=== PATIENT | female | born 1995 | race Caucasian/White ===

== ENCOUNTER 2019-12-04 16:31 | Emergency (ER) | payer OTHER, MEDICARE, MEDICAID, SELFPAY ==
--- NOTE | 2019-12-04 16:38 | ED.ANIMALBIT ---
HPI - Animal Bite General Chief Complaint: Animal Bite Stated Complaint: dog bite Time Seen by Provider: 12/04/19 16:38 Source: patient and RN notes reviewed History of Present Illness HPI narrative: Patient is a 24-year-old female who presents the urgent care with her mother who is her caregiver due to severe autism. Mother states that her caregivers dog bit the patient in the face yesterday. Caregiver states that the dog is up-to-date on all the vaccinations including the rabies. Mother states that patient does need to be up-to-date with her tetanus shot. States that she called her daughter's physician and has an appointment tomorrow at 3 PM but was not prescribed any antibiotics. States that the area has increased in redness and swelling since last night when the incident occurred. Mother denies of any use of [id number] medications. Denies of any known fever, vomiting, complaints of pain. Patient is cooperative without any acute distress noted. Mother is aware of the plan of care. Some parts of this dictation were generated by voice recognition software and may contain typographical and/or grammatical inaccuracies. Related Data Home Medications Medication Instructions Recorded Confirmed citalopram 20 mg tablet 20 mg PO DAILY 12/28/18 12/04/19 diazepam 12.5 mg-15 mg-17.5 mg-20 5 mg RECTAL ONCE PRN each 12/28/18 12/04/19 mg rectal kit divalproex 125 mg capsule,delayed See Rx Instructions PO BID cap 12/28/18 12/04/19 release sprinkle lorazepam 0.5 mg tablet 0.5 mg PO DAILY PRN 12/28/18 12/04/19 naltrexone 50 mg tablet 50 mg PO .QHS tablet 12/28/18 12/04/19 paliperidone palmitate 156 mg/mL 156 mg IM MONTHLY 12/28/18 12/04/19 intramuscular syringe pyridoxal-5 phosphate 20 mg 100 mg PO DAILY tablet 12/28/18 12/04/19 tablet,delayed release trazodone 100 mg PO HS 12/04/19 12/04/19 Allergies Allergy/AdvReac Type Severity Reaction Status Date / Time No Known Allergies Allergy Verified 01/16/16 18:36 Review of Systems Review of Systems: Narrative: CONSTITUTIONAL: Denies fever, chills, or sweats. EYES: Denies visual changes, redness, or discharge. ENT: Denies rhinorrhea, congestion, sore throat, or otalgia. CARDIOVASCULAR: Denies chest pain, palpitations, or edema. RESPIRATORY: Denies cough or dyspnea. GASTROINTESTINAL: Denies abdominal pain, nausea, vomiting, or diarrhea. GENITOURINARY: Denies dysuria or hematuria. SKIN: Reports of a dog bite to the left face with redness and swelling MUSCULOSKELETAL: Denies back pain, joint pain, or myalgia. NEUROLOGIC: Denies headache, numbness, or weakness. All other systems reviewed are negative, except as documented in HPI. [facility] Past Medical History Medical History (Updated 12/04/19 @ 17:03 by ALICE Rubalcava) Anxiety Autism spectrum disorder, requiring support, associated with another neurodevelopmental, mental, or behavioral disorder Fracture of humerus, left, closed 01/2016 Seizures Vitamin D deficiency Family History Family History (Updated 02/09/18 @ 18:09 by DOCTOR UNKNOWN) Father Family history of cardiomyopathy, Onset Age: 38 Social History Social History Smoking status: Never smoker Alcohol intake: never Comments At the time of my signature, I reviewed and agree with the nursing past medical, surgical, social, and family history. There is no relevant family history pertinent to the patient complaint. Exam Narrative: Exam Narrative: GENERAL: This is a well-nourished, well-developed patient, in no apparent distress. HEAD: normocephalic, atraumatic. EYES: PERRL. Sclera clear/white. Vision is grossly intact. EARS: External ears normal NOSE: External nose normal with no obvious nasal discharge, nares without redness, no rhinorrhea. THROAT: Mucous membranes moist, posterior pharynx clear. NECK: Neck supple SKIN: 1.25 cm linear laceration noted to the left jawline with notable dried blood, 0.25 puncture wound noted under the
[2019-12-04 16:46] VITALS: PULSE 124; RESP 16; TEMP 36.4; O2SAT 100
[2019-12-04] MEDS: TETANUS,DIPHTHERIA,AC PERTUSSIS ADULT (0.5 ML) BOOSTRIX IM (17:12)
== END 2019-12-04 17:40 | disposition home or self-care (01) ==
PROVIDERS: Emergency Provider Nurse Practitioner Family; PCP Family Medicine
DX: S01.81XA Laceration without foreign body of other part of head, initial encounter (principal); W54.0XXA Bitten by dog, initial encounter; S01.83XA Puncture wound without foreign body of other part of head, initial encounter; Z23 Encounter for immunization; F41.9 Anxiety disorder, unspecified; F84.0 Autistic disorder
CPT/HCPCS: 90471; 90715; 99213; G0463

== ENCOUNTER 2023-12-23 09:05 | Outpatient (NON) | payer MEDICARE, MEDICAID, SELFPAY ==
[2023-12-23 09:20] LABS: Basophils Percent Auto 0.5 % (0.2-1.2); Eosinophils Percent Auto 0.6 % (0-4.4); Hematocrit 37.3 % (37.0-47.0); Immature Granulocyte Absolute 0.02 K/mm3 (0.00-0.031); Immature Granulocyte Percent A 0.3 % (0-0.5); Lymphocytes Absolute Auto 3.17 K/mm3 (0.9-3.2); Lymphocytes Percent Auto 49.1 % (18.3-44.2); Mean Corpuscular HGB Conc 34.9 g/dl (32-36); Mean Corpuscular Hemoglobin 33.9 pg (26-34); Mean Corpuscular Volume 97.1 fl (80-100); Mean Platelet Volume 10.9 fl (7.4-10.4); Monocytes Absolute Auto 0.5 K/mm3 (0.1-0.6); Monocytes Percent Auto 7.7 % (2.6-8.5); Neutrophils Absolute Auto 2.7 K/mm3 (1.3-6.7); Neutrophils Percent Auto 41.8 % (45.5-73.1); Platelet Count Result 267 k/mm3 (150-375); Red Blood Count 3.84 M/mm3 (4.2-5.4); White Blood Count 6.5 K/mm3 (4.5-10.0)
[2023-12-23 09:39] LABS: Alanine Aminotransferase 31 U/L (6-35); Albumin Level 3.5 g/dL (3.5-5.1); Alkaline Phosphatase 67 U/L (38-126); Anion Gap 9 mmol/L (4-12); Aspartate Amino Transferase 35 U/L (14-36); Bilirubin,Total 0.3 mg/dL (0.2-1.3); Blood Urea Nitrogen 10 mg/dL (7-17); Calcium 8.8 mg/dL (8.4-10.2); Carbon Dioxide 22 mmol/L (22-30); Chloride 102 mmol/L (98-107); Cholesterol 126 mg/dL (0-200); Estimated Glomerular Filt Rate > 60; Glucose 97 mg/dL (65-110); HDL Direct 39 mg/dL; Potassium 3.8 mmol/L (3.4-5.0); Sodium 133 mmol/L (137-145); Triglycerides 200 mg/dL (<150)
[2023-12-23 09:50] LABS: LDL Cholesterol Direct 62 mg/dL
[2023-12-23 11:26] LABS: Hemoglobin A1C 6.1 % (<5.7)
[2023-12-23 14:18] LABS: Valproic Acid 75.5 ug/mL (50-120)
[2023-12-23 14:30] LABS: Vitamin D 25 Hydroxy 58.1 ng/mL
== END 2023-12-23 09:06 | disposition home or self-care (01) ==
PROVIDERS: PCP Family Medicine; Visit Provider Family Medicine
DX: R56.9 Unspecified convulsions (principal); Z79.899 Other long term (current) drug therapy; Z13.220 Encounter for screening for lipoid disorders; E55.9 Vitamin D deficiency, unspecified; Z00.00 Encounter for general adult medical examination without abnormal findings; R73.9 Hyperglycemia, unspecified; F41.9 Anxiety disorder, unspecified; F84.0 Autistic disorder; Z13.29 Encounter for screening for other suspected endocrine disorder; E53.8 Deficiency of other specified B group vitamins
CPT/HCPCS: 36415; 80053; 80061; 80164; 82306; 82607; 83036; 84443; 85025

== ENCOUNTER 2024-12-25 08:26 | Outpatient (NON) | payer MEDICARE, MEDICAID, SELFPAY ==
[2024-12-25 13:04] LABS: Hematocrit 42.2 % (37.0-47.0); Hemoglobin 13.4 g/dL (12.0-15.0); Immature Granulocyte Percent A 0.3 % (0-0.5); Lymphocytes Absolute Auto 4.52 K/mm3 (0.9-3.2); Mean Corpuscular HGB Conc 31.8 g/dl (32-36); Mean Corpuscular Hemoglobin 31.2 pg (26-34); Mean Corpuscular Volume 98.1 fl (80-100); Nucleated Red Blood Cells Absolute Auto 0.000 K/mm3 (0.0-0.012); Nucleated Red Blood Cells Perc 0.0 % (0.0-0.2); Platelet Count Result 248 k/mm3 (150-375); Red Blood Count 4.30 M/mm3 (4.2-5.4); White Blood Count 7.4 K/mm3 (4.5-10.0)
[2024-12-25 13:27] LABS: Alanine Aminotransferase 19 U/L (6-35); Albumin Level 3.8 g/dL (3.5-5.1); Alkaline Phosphatase 81 U/L (38-126); Anion Gap 8 mmol/L (4-12); Aspartate Amino Transferase 71 U/L (14-36); Bilirubin,Total 0.5 mg/dL (0.2-1.3); Blood Urea Nitrogen 12 mg/dL (7-17); Calcium 9.0 mg/dL (8.4-10.2); Carbon Dioxide 24 mmol/L (22-30); Chloride 102 mmol/L (98-107); Cholesterol 163 mg/dL (0-200); Estimated Glomerular Filt Rate > 60; Glucose 86 mg/dL (65-110); HDL Direct 46 mg/dL; Potassium 4.5 mmol/L (3.4-5.0); Sodium 134 mmol/L (137-145); Total Protein 7.1 g/dL (6.3-8.2); Triglycerides 128 mg/dL (<150)
[2024-12-25 13:58] LABS: Thyroid Stimulating Hormone Reflex 5.570 uIU/mL (0.465-4.68)
[2024-12-25 14:11] LABS: Vitamin B12 524.0 pg/mL (239-931)
[2024-12-25 14:16] LABS: Hemoglobin A1C 5.6 % (<5.7)
[2024-12-25 15:18] LABS: Free T4 Free Thyroxine Reflex 1.42 ng/dL (0.78-2.19)
[2024-12-25 16:09] LABS: Total Triiodothyronine (T3) 1.74 NG/ML (0.82-1.58)
== END 2024-12-25 08:27 | disposition home or self-care (01) ==
PROVIDERS: PCP Family Medicine; Visit Provider Family Medicine
DX: E78.5 Hyperlipidemia, unspecified (principal); Z79.899 Other long term (current) drug therapy; F41.9 Anxiety disorder, unspecified; E53.8 Deficiency of other specified B group vitamins; R00.0 Tachycardia, unspecified; Z00.00 Encounter for general adult medical examination without abnormal findings; R56.9 Unspecified convulsions; R73.03 Prediabetes; E55.9 Vitamin D deficiency, unspecified
CPT/HCPCS: 36415; 80053; 80061; 80164; 82306; 82607; 83036; 84439; 84443; 84480; 85025